=== PATIENT | male | born 1965 | race Caucasian/White ===

== ENCOUNTER 2016-12-30 21:49 | Emergency (ER) | payer BC, OTHER ==
--- NOTE | 2016-12-30 21:56 | ED Physician Chart ---
Chief Complaint/HPI - Patient Information Date Seen:: 12/30/16 Time Seen:: 21:53 Chief Complaint:: finger pain History of Present Illness:: 51-year-old male, otherwise healthy, complains of acute, worsening, constant, aching, nonradiating, moderate to severe, 8 out of 10 at worst, left third fingertip pain that started 10 days ago after he accidentally moved his finger in front of a welding machine. Has some associated swelling of the finger. Historian:: Patient Review:: Nurse's Note Reviewed Review of Systems - Review of Systems Other: Complete system review otherwise unremarkable except as noted in HPI. Past Medical History - Past Medical History Past Medical History: No significant medical hx Family History: None Social History: Non Smoker, No Alcohol, No Drug Use, Employed Surgical History: None Psychiatricy History: None Medication: None Family Medical History - Family Member Mother History Unknown: Yes Physical Exam - Physical Examination Other:: INITIAL VITAL SIGNS: Reviewed by me GENERAL: Alert and interactive. No acute distress HEAD: Head is normocephalic and atraumatic EYES: EOMI. . No scleral icterus. No conjunctival injection ENT: Moist mucous membranes. NECK: Supple. No masses. Full range of motion RESPIRATORY: No tachypnea. Clear breath sounds bilaterally. No wheezing, rales, or rhonchi CV: Regular rate and rhythm. No murmurs, rubs, or gallops ABDOMEN: Soft, non-distended, non-tender. No guarding. No rebound. No masses. EXTREMITIES: Left third distal finger tip is edematous on the pad area. There is pain to palpation. There is good neurovascular status to the distal fingertip. SKIN: Warm and dry. No obvious rashes. NEUROLOGIC: Alert and oriented. Face is symmetric. Speech is normal. Moves all extremities equally. Motor and sensory distally intact. Assessment - Procedures Procedures:: Abscess/Felon Incision and Drainage with irrigation by me: Location: Left distal third fingertip Anesthesia: Local 1% Lidocaine Technique: Irrigated. Disrupted loculations w/ instrumentation Packing: None Complications: Neurovascularly intact post procedure 48 hour wound check. Scar minimization instructions given. [] ED Septic Shock - . Is Septic Shock (SBP<90, OR Lactate>4 mmol\L) present?: No Reassessment (Disposition) - Reassessment Reassessment:: Patient has a subcutaneous pyogenic infection of the pulp space compartment of the distal third left finger. Consistent with felon. Incision and drainage was performed. Gram stains were obtained. X-ray showed no foreign body. Incision was made along the ulnar aspect of the left, third middle finger approximately 5 mm distal to the flexor DIP crease ending approximately 5 mm proximal to the nail plate border. Area was bluntly dissected and explored until the abscess was decompressed. No packing was placed. Patient tolerated the procedure well. Antibiotics were given here in the ER as well as prescriptions were provided. Also provided prescription for analgesics. Follow -up PCP 1-2 days for wound check. Return to ER precautions given. Patient understands and agrees the plan. Reassessment Condition:: Improved - Diagnosis Diagnosis:: Felon/fingertip infection distal left third finger Elevated blood pressure without diagnosis of hypertension - Aftercare/Follow up Instructions Aftercare/Follow-Up Instructions:: Counseled pt regarding lab results/diagnosis & need follow up, Refer to Discharge Instructions Medication Prescribed:: [place] Ibuprofen Keflex Bactrim DS - Patient Disposition Discharge/Transfer:: Home Time:: 23:32 Condition at Disposition:: Improved ED Discharge Plan - Patient Disposition Admit/Discharge/Transfer: PT DISCHARGED HOME Condition at Disposition: Improved Instructions: Fingertip Infections
[2016-12-30] MEDS ORDERED: Hydrocodone/APAP 5mg/325mg Tab PO ONE (22:16)
[2016-12-30] MEDS ORDERED: Hydrocodone/APAP 5mg/325mg Tab ONE (22:41)
[2016-12-30] MEDS ORDERED: Sulfamethoxazole/TMP 800/160mg Tab ONE (23:14)
[2016-12-30] MEDS ORDERED: Sulfamethoxazole/TMP 800/160mg Tab PO ONE (23:19)
--- NOTE | 2016-12-30 23:52 | Admit Criteria Form ---
Admit Criteria Forms - Admit Criteria Admit Criteria Met?: Yes
--- NOTE | 2016-12-31 11:10 | Diagnostic Imaging Report ---
Left third finger 3 views Indication: Welding injury Comparison: none Findings: There is soft tissue swelling of the third distal phalangeal region. Punctate calcification is seen adjacent to the third mid phalanx, distally. No evidence of acute fracture or dislocation. No osseous erosions. No evidence of a radiopaque foreign body. Impression: No evidence of an acute fracture. Soft tissue injury involving the third distal phalanx. No evidence of a radiopaque foreign body. Please correlate clinically. In the setting of trauma, if clinical symptoms persist and there is continued concern for an occult fracture, follow up exams in 5-7 days is suggested.
== END 2016-12-31 00:05 | disposition home or self-care (01) ==
LOC: ER 21:49
DX: L03.012 Cellulitis of left finger (principal); R03.0 Elevated blood-pressure reading, without diagnosis of hypertension
CPT/HCPCS: 99284; 26010; 73140; 90715; Q0162; J2001; Z7502; Z7610